=== PATIENT | male | born 1980 | race Caucasian/White ===

== ENCOUNTER 2025-06-25 00:51 | Emergency (ER) | payer BC, SELFPAY ==
[2025-06-25 01:04] VITALS: BP 130/86
[2025-06-25] MEDS: MARCAINE 0.5% W/EPI DENTAL CARTDRIDGE 1 CARTRIDGE INJ (01:26)
--- NOTE | 2025-06-25 01:41 | ED.GENMED ---
History of Present Illness
General
Chief Complaint: Dental Problem
Source: patient
Exam Limitations: none
Time Seen by Provider: 06/25/25 01:16
Nursing documentation reviewed up to this point in time: agreed with
History of Present Illness
History of Present Illness:
Note:
CHIEF COMPLAINT(S)
Left lower molar pain.
HISTORY OF PRESENT ILLNESS
The patient is a 43-year-old male who presented to the emergency department with complaints of left lower molar pain. He reported that the pain was persistent and had recently worsened. The patient had previously visited an urgent care facility
where he was administered ketorolac, but this did not alleviate his symptoms. He was started on Amoxicillin/Clavulanate and has taken one dose so far. While in the emergency department, he was administered topical lidocaine gel, and a dental block
was performed using bupivacaine. The patient tolerated the procedure well and reported an improvement in his symptoms thereafter.
PHYSICAL EXAM
General: Alert, moderate acute distress.
Skin: Warm, dry.
Head: Normocephalic, atraumatic.
Neck: Supple, trachea midline.
Eye, Ears, Nose, Mouth, and Throat: Oral mucosa moist. No evidence of abscess or buccal mucosal swelling. Tristan 1 fracture of the first molar
Respiratory: Respirations are non-labored.
Gastrointestinal: Abdomen nondistended.
Back: Normal range of motion, normal alignment.
Musculoskeletal: Normal ROM, normal strength.
Neurological: Alert and oriented to person, place, time, and situation. No focal neurological deficit observed.
Psychiatric: Cooperative, appropriate mood and affect.
PLAN
The patient is to be discharged with a prescription for diclofenac (Voltaren) and advised to continue the Amoxicillin/Clavulanate. He is instructed to follow up with his dentist for further evaluation and management.
DIFFERENTIAL DIAGNOSIS
The Differential Diagnosis includes, in no particular order and is not limited to:
1. Dental abscess not obviously seen on physical exam
2. Acute pulpitis
3. Pericoronitis
4. Periodontal abscess
5. Osteomyelitis of the jaw
6. Sinusitis with referred pain
7. Temporomandibular joint disorder
8. Trigeminal neuralgia
9. Impacted tooth
10. Mandibular fracture
Disposition:
SUMMARY OF ENCOUNTER
The patient, a 43-year-old male, presented to the emergency department with left lower molar pain. Initial management included administration of ketorolac at an urgent care facility, which was ineffective. At the emergency department, topical
lidocaine gel was applied, and a dental block was performed using bupivacaine, providing symptom relief. The patient was started on a course of Amoxicillin/Clavulanate.
DISPOSITION
Discharge.
ASSESSMENT
The patient is experiencing dental pain likely due to an underlying dental issue requiring further evaluation by a dental professional.
EMERGENCY TREATMENTS ADMINISTERED
Topical lidocaine gel and a dental block with bupivacaine.
PLAN
The patient is to be discharged with a prescription for diclofenac and advised to continue taking Amoxicillin/Clavulanate. He is instructed to follow up with his dentist for further evaluation and management.
MEDICATION RECONCILIATION
- Prescription for diclofenac provided.
- Continuation of Amoxicillin/Clavulanate recommended.
MEDICAL DECISION MAKING
-Complexity of Data Reviewed: Chronic conditions affecting care include dental issues potentially related to the differentials such as dental abscess, acute pulpitis, pericoronitis, periodontal abscess, osteomyelitis of the jaw, sinusitis with
referred pain, temporomandibular joint disorder, trigeminal neuralgia, impacted tooth, mandibular fracture.
-Risk:
Prescription medication was prescribed for pain management (diclofenac) and to address underlying infection/inflammation (Amoxicillin/Clavulanate).
DIAGNOSIS
Dentalgia (ICD-10: K08.89)
Suspected underlying dental abscess or related condition pending dental evaluation.
Past History
Past History
ED Past Medical History: Hypothyroidism
ED Past Surgical History: Appendectomy
Social History
Tobacco: Non-smoker
Alcohol: Occasional
Personal:
Living: with family
Employment: Employed
Phy Exam
Physical Exam
Physical Exam:
.
Course
Orders/Labs/Results
Orders:
Orders
06/25/25 01:19
Bupivacaine HCl/Epinephrine [Marcaine 0.5% W/Epi Dental [place]] 1 cartridge INJ OR ONE
Vital Signs
Initial and Last Documented VS:
Initial Vital Signs
Temp Pulse Resp BP Pulse Ox
97.6 F 58 18 130/86 100
06/25/25 01:04 06/25/25 01:04 06/25/25 01:04 06/25/25 01:04 06/25/25 01:04
Last Documented Vital Signs
Temp Pulse Resp BP Pulse Ox
97.6 F 58 18 130/86 100
06/25/25 01:04 06/25/25 01:04 06/25/25 01:04 06/25/25 01:04 06/25/25 01:04
*Pulse Oximetry
SaO2: 100
Patient hypoxic: no
*Critical Care Note
Total Time (30-74mins, 75-104mins- exclusive of procedures): Not Applicable
ED Attending Note
-
Portions of this chart may have been created with voice recognition software.� Occasional wrong word or��sound alike� substitutions may have occurred due to the inherent limitations of voice recognition software.
Discharge Plan
Departure
Patient Disposition: Home (Routine Discharge)
Date of Disposition: 06/25/25
Time of Disposition: 01:38
Patient with high blood pressure during this ER visit?: Yes
Discharge Problem:
Dentalgia
Instructions: Dental Pain (DC), BLOOD PRESSURE
Prescriptions:
New
diclofenac sodium 75 mg tablet,delayed release (DR/EC)
75 mg PO BID Qty: 10 0RF
No Action
levothyroxine [Synthroid] 125 MCG tablet
125 mcg PO DAILY
prochlorperazine maleate [Compazine] 5 MG tablet
10 mg PO Q8HPRN PRN (Reason: vomiting) Qty: 20 0RF
oxycodone-acetaminophen 5 MG/325 MG tablet
1 tab PO Q4HPRN PRN (Reason: pain) Qty: 20 0RF
epinephrine 0.3 mg/0.3 mL auto-injector
0.3 mg IM Q5-15M PRN (Reason: hypersensitivity reaction) Qty: 2 0RF
prednisone 20 mg tablet
40 mg PO DAILY 3 Days Qty: 6 0RF
Activity Restrictions/Additional Instructions:
Your prescriptions were sent electronically to the pharmacy that you specified.
Thank You for choosing [facility].
It was a pleasure meeting you and taking part in your care. We hope for your continued healing and wellness.
Please read discharge instructions in their entirety. However, they are for general education and may not describe your exact diagnosis at discharge. Information on your ER visit and medical conditions were discussed with you along with appropriate
follow up information...
If indicated, please take your medications as instructed and indicated on discharge paperwork.
Please schedule a follow up appointment as directed. Call to schedule an appointment
Please return to the emergency department with ANY change in, persisting, or worsening of symptoms. If any of your symptoms do not improve, or persist, or become more severe within 6-12 hours, please return to the emergency department for further
care.
Please return to the emergency department if you develop a headache, neck pain/stiffness, fever greater than 100.4F, chest pain, shortness of breath, persistent nausea, vomiting, slurred speech, difficulty walking, numbness/tingling, weakness, signs
of infection or any other symptoms that are worrisome to you.
If you have any questions or concerns please do not hesitate to call the Hospital at .
Interventions
Interventions:
*Risk Screen - Suicide Last Done: 06/25/25 01:04
*General Assessment Last Done: 06/25/25 01:11
*Neglect/Abuse Screening Last Done: 06/25/25 01:04
*ED- Fall Risk Assessment Last Done: 06/25/25 01:11
*ED COVID-19 Vaccine History Last Done: 06/25/25 01:11
*ED Influenza Vaccine History Last Done: 06/25/25 01:11
Discharge Date and Time
Print Language: LIBYAN
[2025-06-25 01:45] VITALS: BP 122/74
== END 2025-06-25 01:53 | disposition home or self-care (01) ==
LOC: EMR 00:51
PROVIDERS: EMERGENCY PHYSICIAN Student in an Organized Health Care Education/Training Program; FAMILY PHYSICIAN Family Medicine
DX: K08.89 Other specified disorders of teeth and supporting structures (principal); R03.0 Elevated blood-pressure reading, without diagnosis of hypertension; E03.9 Hypothyroidism, unspecified
CPT/HCPCS: 99282; 64400; 70487; 80053; 85025; 85652; 86140; Q9967

== ENCOUNTER 2025-06-25 02:32 | Emergency (ER) | payer BC, SELFPAY ==
[2025-06-25 02:43] VITALS: BP 130/90
[2025-06-25 03:12] VITALS: BMI 30.3
[2025-06-25] MEDS: PERCOCET 5/325 1 TABLET PO ×2 (03:23→05:55)
[2025-06-25] MEDS: MARCAINE 0.5% W/EPI DENTAL CARTDRIDGE 1 CARTRIDGE INJ ×2 (03:24→05:03)
--- NOTE | 2025-06-25 05:20 | ED.GENMED ---
History of Present Illness
<Shashank Ramos, DO - Last Filed: 06/26/25 22:07>
General
Chief Complaint: Dental Problem
Source: patient
Exam Limitations: none
Time Seen by Provider: 06/25/25 03:10
Nursing documentation reviewed up to this point in time: agreed with
History of Present Illness
History of Present Illness:
Note:
CHIEF COMPLAINT(S)
Dental pain
HISTORY OF PRESENT ILLNESS
The patient is a 44-year-old male who was seen earlier in the emergency room for dental pain. After receiving treatment, he reported feeling much better and left the facility. However, upon returning home, his dental pain recurred, prompting another
visit. Upon arrival, the patient was administered Percocet for pain relief. Subsequently, a periosteal filling was performed, along with another dental block. The patient is currently resting comfortably.
PHYSICAL EXAM
General: Alert, no acute distress.
Skin: Warm, dry.
Head: Normocephalic, atraumatic.
Neck: Supple, trachea midline.
Eye Ears, nose, mouth, and throat: Oral mucosa moist. Tympanic membranes are normal without signs of infection
Respiratory: Respirations are non-labored.
Gastrointestinal: Abdomen nondistended
Back: Normal range of motion, Normal alignment.
Musculoskeletal: Normal ROM, normal strength.
Neurological: Alert and oriented to person, place, time, and situation, No focal neurological deficit observed.
Psychiatric: Cooperative, appropriate mood & affect.
PLAN
Administered Percocet for pain relief.
Performed periosteal filling and dental block to manage dental pain.
Advised patient to rest and monitor symptoms.
DIFFERENTIAL DIAGNOSIS
The Differential Diagnosis includes, in no particular order and is not limited to:
- Dental abscess
-Dentalgia
- Periodontitis
- Pericoronitis
- Temporomandibular joint disorder
- Sinusitis
- Trigeminal neuralgia
- Dental caries
- Alveolar osteitis
- Impacted tooth
CARE-UPDATE
06/25/25 - 07:41
The patient reports persistent pain, though it has decreased in intensity. A CT scan of the face is scheduled, and lab work has been completed. Care has been transitioned to the day shift physician.
Past History
<Shashank Ramos DO - Last Filed: 06/26/25 22:07>
Past History
ED Past Medical History: Hypothyroidism
ED Past Surgical History: Appendectomy
Social History
Tobacco: Non-smoker
Alcohol: Occasional
Personal:
Living: with family
Employment: Employed
Phy Exam
<Shashank Ramos DO - Last Filed: 06/26/25 22:07>
Physical Exam
Physical Exam:
.
Sepsis
<Shashank Ramos DO - Last Filed: 06/26/25 22:07>
Sepsis Screening
Sepsis Assessment: Sepsis Ruled Out
Sepsis Screen
Sepsis Screen: Sepsis Ruled Out
Date: 06/26/25
Time: 22:07
Course
<Shashank Ramos DO - Last Filed: 06/26/25 22:07>
Orders/Labs/Results
Orders:
Orders
06/25/25 03:15
Bupivacaine HCl/Epinephrine [Marcaine 0.5% W/Epi Dental [place]] 1 cartridge .ROUTE .STK-MED ONE
Oxycodone/Acetaminophen [Percocet 5/325] 1 tablet .ROUTE .STK-MED ONE
06/25/25 03:22
Oxycodone/Acetaminophen [Percocet 5/325] 1 tablet PO NOW STA
06/25/25 03:24
Bupivacaine HCl/Epinephrine [Marcaine 0.5% W/Epi Dental [place]] 1 cartridge INJ OR ONE
06/25/25 05:02
Bupivacaine HCl/Epinephrine [Marcaine 0.5% W/Epi Dental [place]] 1 cartridge INJ OR ONE
06/25/25 05:50
Oxycodone/Acetaminophen [Percocet 5/325] 1 tablet PO NOW STA
06/25/25 06:33
CT Facial Bones W/ Iv Contrast Urgent
Comment:
Reason For Exam: dental pain
Dexamethasone Sod Phosphate [Decadron] 10 mg IV NOW STA
06/25/25 07:32
CRP [C-Reactive Protein] Urgent
Complete Blood Count/With Diff Urgent
Comprehensive Metabolic Panel Urgent
Sed Rate [Erythrocyte Sed Rate] Urgent
06/25/25 08:04
HYDROmorphone [Dilaudid] 0.5 mg IV NOW STA
Ketorolac [Toradol] 15 mg IV NOW STA
06/25/25 08:05
0.9% Sodium Chloride 500 ml [Nss] 500 ml IV BOLUS
06/25/25 10:50
HYDROmorphone [Dilaudid] 0.5 mg IV NOW STA
Abnormal Lab Results
06/25/25
07:32
Absolute Neuts (auto) 7.7 H 10^3/uL
(1.4-6.5)
Absolute Lymphs (auto) 0.9 L 10^3/uL
(1.2-3.4)
Neutrophils % 83.8 H %
(42.2-75.2)
Lymphocytes % 10.0 L %
(20.5-51.1)
Glucose 106 H mg/dl
(70-99)
Total Bilirubin 1.7 H mg/dl
(0.2-1.3)
06/25/25 07:32
06/25/25 07:32
Vital Signs
Initial and Last Documented VS:
Initial Vital Signs
Temp Pulse Resp BP Pulse Ox
97.6 F 54 22 130/90 98
06/25/25 02:43 06/25/25 02:43 06/25/25 02:43 06/25/25 02:43 06/25/25 02:43
Last Documented Vital Signs
Temp Pulse Resp BP Pulse Ox
97.6 F 78 16 139/77 98
06/25/25 02:43 06/25/25 08:30 06/25/25 08:30 06/25/25 08:30 06/25/25 08:30
<Modesto Pandey MD - Last Filed: 06/25/25 10:52>
Orders/Labs/Results
Orders:
Orders
06/25/25 03:15
Bupivacaine HCl/Epinephrine [Marcaine 0.5% W/Epi Dental [place]] 1 cartridge .ROUTE .STK-MED ONE
Oxycodone/Acetaminophen [Percocet 5/325] 1 tablet .ROUTE .STK-MED ONE
06/25/25 03:22
Oxycodone/Acetaminophen [Percocet 5/325] 1 tablet PO NOW STA
06/25/25 03:24
Bupivacaine HCl/Epinephrine [Marcaine 0.5% W/Epi Dental [place]] 1 cartridge INJ OR ONE
06/25/25 05:02
Bupivacaine HCl/Epinephrine [Marcaine 0.5% W/Epi Dental [place]] 1 cartridge INJ OR ONE
06/25/25 05:50
Oxycodone/Acetaminophen [Percocet 5/325] 1 tablet PO NOW STA
06/25/25 06:33
CT Facial Bones W/ Iv Contrast Urgent
Comment:
Reason For Exam: dental pain
Dexamethasone Sod Phosphate [Decadron] 10 mg IV NOW STA
06/25/25 07:32
CRP [C-Reactive Protein] Urgent
Complete Blood Count/With Diff Urgent
Comprehensive Metabolic Panel Urgent
Sed Rate [Erythrocyte Sed Rate] Urgent
06/25/25 08:04
HYDROmorphone [Dilaudid] 0.5 mg IV NOW STA
Ketorolac [Toradol] 15 mg IV NOW STA
06/25/25 08:05
0.9% Sodium Chloride 500 ml [Nss] 500 ml IV BOLUS
06/25/25 10:50
HYDROmorphone [Dilaudid] 0.5 mg IV NOW STA
Abnormal Lab Results
06/25/25
07:32
Absolute Neuts (auto) 7.7 H 10^3/uL
(1.4-6.5)
Absolute Lymphs (auto) 0.9 L 10^3/uL
(1.2-3.4)
Neutrophils % 83.8 H %
(42.2-75.2)
Lymphocytes % 10.0 L %
(20.5-51.1)
Glucose 106 H mg/dl
(70-99)
Total Bilirubin 1.7 H mg/dl
(0.2-1.3)
06/25/25 07:32
06/25/25 07:32
Vital Signs
Initial and Last Documented VS:
Initial Vital Signs
Temp Pulse Resp BP Pulse Ox
97.6 F 54 22 130/90 98
06/25/25 02:43 06/25/25 02:43 06/25/25 02:43 06/25/25 02:43 06/25/25 02:43
Last Documented Vital Signs
Temp Pulse Resp BP Pulse Ox
97.6 F 78 16 139/77 98
06/25/25 02:43 06/25/25 08:30 06/25/25 08:30 06/25/25 08:30 06/25/25 08:30
Carlos Albertolt;Shashank Ramos, - Last Filed: 06/26/25 22:07>
*Pulse Oximetry
SaO2: 99
Oxygen Mode of Delivery: Room air
Patient hypoxic: no
*Critical Care Note
Total Time (30-74mins, 75-104mins- exclusive of procedures): Not Applicable
<Shashank Ramos DO - Last Filed: 06/26/25 22:07>
Update Note
Update Note:
Upper submental block placed. Patient tolerated procedure well. Feels better.
<Modesto Pandey MD - Last Filed: 06/25/25 10:52>
Update Note
Update Note:
Upper submental block placed. Patient tolerated procedure well. Feels better.
Patient given Dilaudid IV along with Toradol, with improvement in symptoms. Patient otherwise remains afebrile, hemodynamically stable, and nontoxic-appearing. CT report reviewed and discussed with patient and family. Patient will be discharged
from ED at this time, where he will follow-up with his dentist upon discharge. Patient provided with copy of blood work and copy of CT on a disk, prior to discharge.
ED Attending Note
<Shashank Ramos DO - Last Filed: 06/26/25 22:07>
-
Portions of this chart may have been created with voice recognition software.� Occasional wrong word or��sound alike� substitutions may have occurred due to the inherent limitations of voice recognition software.
Discharge Plan
Departure
Patient Disposition: Home (Routine Discharge)
Date of Disposition: 06/25/25
Time of Disposition: 10:51
Patient with high blood pressure during this ER visit?: Yes
Condition: Fair
Discharge Problem:
Dental cavity
Instructions: Dental Pain (DC)
Prescriptions:
No Action
levothyroxine [Synthroid] 125 MCG tablet
125 mcg PO DAILY
prochlorperazine maleate [Compazine] 5 MG tablet
10 mg PO Q8HPRN PRN (Reason: vomiting) Qty: 20 0RF
oxycodone-acetaminophen 5 MG/325 MG tablet
1 tab PO Q4HPRN PRN (Reason: pain) Qty: 20 0RF
epinephrine 0.3 mg/0.3 mL auto-injector
0.3 mg IM Q5-15M PRN (Reason: hypersensitivity reaction) Qty: 2 0RF
prednisone 20 mg tablet
40 mg PO DAILY 3 Days Qty: 6 0RF
diclofenac sodium 75 mg tablet,delayed release (DR/EC)
75 mg PO BID Qty: 10 0RF
Referrals:
Raciel Mccoy MD [Family Provider, Family Practice]
Activity Restrictions/Additional Instructions:
As discussed, please follow-up with your dentist upon discharge for further evaluation and treatment.
Interventions
Interventions:
*Risk Screen - Suicide Last Done: 06/25/25 02:47
*General Assessment Last Done: 06/25/25 03:12
*Neglect/Abuse Screening Last Done: 06/25/25 02:47
*ED- Fall Risk Assessment Last Done: 06/25/25 03:12
*ED COVID-19 Vaccine History Last Done: 06/25/25 03:12
*ED Influenza Vaccine History Last Done: 06/25/25 03:12
*Nursing Disposition Last Done: 06/25/25 11:07
Discharge Date and Time
Discharge Date/Time: 06/25/25 11:09
Print Language: ICELANDIC
[2025-06-25 05:58] VITALS: BP 137/98
[2025-06-25] MEDS: DECADRON 10 MG IV (07:43)
[2025-06-25 07:54] LABS: Hematocrit 42.4 % (39.0-52.0); Hemoglobin 14.6 g/dL (13.0-18.0); Mean Corp Hgb Conc. 34.4 g/dL (33.0-37.0); Mean Corpuscular Volume 85.7 fL (80.0-94.0); Nucleated Red Blood Cells % 0 % (-); Platelet Count 251 10^3/uL (130-400); Red Cell Dist. Width 12.4 % (11.5-14.5)
[2025-06-25] MEDS: TORADOL 15 MG IV (08:10)
[2025-06-25] MEDS: DILAUDID 0.5 MG IV ×2 (08:10→11:00)
[2025-06-25] MEDS: NSS 500 IV (08:11)
[2025-06-25 08:13] LABS: C-Reactive Protein 7.50 mg/L (0.0-10.00)
[2025-06-25 08:15] LABS: ALT (SGPT) 34 U/L (0-50); AST (SGOT) 38 U/L (17-59); Albumin 4.6 g/dl (3.5-5.0); Alkaline Phosphatase 60 U/L (38-126); Blood Urea Nitrogen 15 mg/dl (9-20); Calcium 9.5 mg/dl (8.4-10.2); Carbon Dioxide 27 mmol/L (22-30); Chloride 105 mmol/L (98-107); Estimated Creatinine Clearance > 125 ml/min; Glucose 106 mg/dl (70-99); Potassium 3.6 mmol/L (3.5-5.1); Sodium 136 mmol/L (135-145); Total Protein 7.3 g/dl (6.3-8.2); eGFR > 60.00
[2025-06-25 08:30] VITALS: BP 139/77
== END 2025-06-25 11:09 | disposition home or self-care (01) ==
LOC: EMR 02:32
PROVIDERS: EMERGENCY PHYSICIAN Student in an Organized Health Care Education/Training Program; FAMILY PHYSICIAN Family Medicine
DX: K02.9 Dental caries, unspecified (principal); R03.0 Elevated blood-pressure reading, without diagnosis of hypertension; E03.9 Hypothyroidism, unspecified
CPT/HCPCS: 64400; 70487; 80053; 85025; 85652; 86140; 96361; 96374; 96375; 96376; 99284; Q9967